=== PATIENT | male | born 1965 | race Caucasian/White ===

== ENCOUNTER 2018-02-18 11:55 | Emergency (ER) | payer BC ==
[2018-02-18] MEDS ORDERED: ONDANSETRON HCL 4 MG/2 ML VIAL ONE (12:16)
[2018-02-18 12:28] LABS: BASOPHILS % (AUTO) 0.5 % (0.0-5.0); EOSINOPHILS % (AUTO) 5.1 % (0.0-8.0); HEMATOCRIT 46.8 % (42-54); LYMPHOCYTES % (AUTO) 15.3 % (21.0-51.0); MEAN CORPUSCULAR HEMOGLOBIN 28.1 pg (27.0-33.0); MEAN CORPUSCULAR HGB CONC 34.5 g/dL (32.0-36.0); MEAN CORPUSCULAR VOLUME 81.5 fL (79-99); NEUTROPHILS % (AUTO) 73.1 % (40.0-77.0); PLATELET COUNT (AUTO) 242 K/uL (130-400); RED BLOOD CELL COUNT(AUTO) 5.74 MIL/uL (4.50-6.20); RED CELL DISTRIBUTION WIDTH 13.4 % (11.0-15.5); WHITE BLOOD COUNT (AUTO) 8.6 K/uL (4.8-10.8)
[2018-02-18 12:42] LABS: CREATININE 1.3 mg/dL (0.5-1.5); POTASSIUM 3.7 mmol/L (3.5-5.1)
[2018-02-18 12:47] LABS: ALBUMIN 4.1 g/dL (3.5-5.0); BILIRUBIN,TOTAL 0.5 mg/dL (0.2-1.0); TOTAL PROTEIN, SERUM 7.5 g/dL (6.0-8.3)
[2018-02-18] MEDS ORDERED: SODIUM CHLORIDE 0.9% 1000ML 1,000 ML IV ONE (13:27)
[2018-02-18] MEDS ORDERED: KETOROLAC TROMETHAMINE 30MG/ML ONE (13:27)
[2018-02-18 13:30] LABS: APPEARANCE,URINE Turbid (CLEAR); BILIRUBIN,URINE Negative (NEGATIVE); COLOR,URINE Dark Yellow (YELLOW); GLUCOSE, URINE (UA) Negative (NEGATIVE); KETONES,URINE 15 mg/dL (NEGATIVE); LEUKOCYTE ESTERASE ,URINE Trace (NEGATIVE); NITRATE,URINE Negative (NEGATIVE); OCCULT BLOOD,URINE Large (NEGATIVE); PROTEIN,URINE POS 1+ (NEGATIVE)
[2018-02-18] MEDS ORDERED: HYDROMORPHONE 1 MG/1 ML AMP ONE (13:36)
[2018-02-18 13:48] LABS: RBC,URINE 51-100 /HPF (0-1)
[2018-02-18 13:49] LABS: AMORPHOUS SEDIMENT,UR Many /LPF (None Seen); BACTERIA,URINE Moderate /HPF (None Seen); SQUAMOUS EPITHELIAL CELL,UR 0-2 /HPF (0-2)
== END 2018-02-18 14:45 | disposition home or self-care (01) ==
LOC: EDH 11:55
DX: N20.0 Calculus of kidney (principal); N21.1 Calculus in urethra
CPT/HCPCS: 36415; 74176; 80053; 81001; 82150; 83690; 85025; 93005; 96361; 96374; 96375; 99285; J1170; J1885; J2405; J7030

== ENCOUNTER → 2018-03-26 | Outpatient (CLI) | payer BC | END | disposition home or self-care (01) | LOC: RAH 14:32 | PROVIDERS: ATTEND Urology | DX: N13.30 Unspecified hydronephrosis (principal) | CPT/HCPCS: 76770 ==

== ENCOUNTER 2018-04-26 07:35 | Day surgery (SDC) | payer BC ==
[2018-04-24 16:30] VITALS: BP 123/78
[~2018-04-26] VITALS: Ht 185.4 cm; Wt 90.9 kg
[2018-04-26] VITALS (12 sets, daily range): BP systolic 107–135; BP diastolic 65–96
[~2018-04-26 07:35] MED LIST: TAMS-1 PO
[2018-04-26] MEDS ORDERED: LACTATED RINGERS 1000ML 1,000 ML IV ONE (08:08)
[2018-04-26] MEDS: CEFTRIAXONE SODIUM 1 GM IVP PRN ×2 (08:23→10:10)
[2018-04-26] MEDS ORDERED: IOHEXOL-350 50ML VIAL IV ONE (09:40)
[2018-04-26] MEDS ORDERED: LIDOCAINE PF 2% 5ML ABBOJECT ONE (09:48)
[2018-04-26] MEDS ORDERED: FENTANYL CITRATE PF 50 MCG/1 ML 2ML VIAL ONE (09:48)
[2018-04-26] MEDS ORDERED: PROPOFOL 10 MG/ML 20ML VIAL IV ONE (09:48)
[2018-04-26] MEDS ORDERED: MEPERIDINE-PF 25 MG/ML SYG ONE (11:18)
[2018-04-26] MEDS ORDERED: OPIUM/BELLADONNA ALKALOIDS 1 EACH SUPP.RECT RC ONE (11:27)
[2018-04-26] MEDS ORDERED: PHENAZOPYRIDINE HCL 200 MG TABLET ONE (12:31)
== END 2018-04-26 13:16 | disposition home or self-care (01) ==
LOC: DAH 07:35
PROVIDERS: ATTEND Urology
DX: N13.2 Hydronephrosis with renal and ureteral calculous obstruction (principal); R31.0 Gross hematuria; Z79.899 Other long term (current) drug therapy; Z98.890 Other specified postprocedural states
CPT/HCPCS: 52356; 74420; A4218; A4354; A4358; A4510; A4600; A4649; C1726; C1758 ×3; C1769; C2617; J0696; J2001; J2175; J2704; J3010; J7030; J7120 ×2; Q9967

== ENCOUNTER 2019-07-16 21:48 | Emergency (ER) | payer BC ==
[2019-07-16] MEDS ORDERED: SODIUM CHLORIDE 0.9% 1000ML 1,000 ML IV ONE ×2 (22:31→23:05)
[2019-07-16 22:47] LABS: BASOPHILS % (AUTO) 0.5 % (0.0-5.0); EOSINOPHILS % (AUTO) 0.2 % (0.0-8.0); HEMATOCRIT 47.1 % (42-54); LYMPHOCYTES % (AUTO) 14.4 % (21.0-51.0); MEAN CORPUSCULAR HEMOGLOBIN 27.1 pg (27.0-33.0); MEAN CORPUSCULAR VOLUME 79.8 fL (79-99); MONOCYTES % (AUTO) 10.8 % (3.0-13.0); NEUTROPHILS % (AUTO) 72.7 % (40.0-77.0); PLATELET COUNT (AUTO) 190 K/uL (130-400); RED CELL DISTRIBUTION WIDTH 12.6 % (11.0-15.5); WHITE BLOOD COUNT (AUTO) 4.2 K/uL (4.8-10.8)
[2019-07-16 22:49] LABS: BILIRUBIN,URINE Small (NEGATIVE); COLOR,URINE Dark Yellow (YELLOW); GLUCOSE, URINE (UA) Negative (NEGATIVE); KETONES,URINE 15 mg/dL (NEGATIVE); LEUKOCYTE ESTERASE ,URINE Negative (NEGATIVE); NITRATE,URINE Negative (NEGATIVE); OCCULT BLOOD,URINE Negative (NEGATIVE); PH,URINE 5.5 (5.0-8.0); PROTEIN,URINE POS 1+ mg/dL (NEGATIVE)
[2019-07-16 22:52] LABS: APPEARANCE,URINE CLEAR (CLEAR)
[2019-07-16] MEDS ORDERED: METOCLOPRAMIDE 10 MG/2 ML VIAL ONE (22:57)
[2019-07-16] MEDS ORDERED: ONDANSETRON HCL 4 MG/2 ML VIAL ONE (22:57)
[2019-07-16] MEDS ORDERED: HYOSCYAMINE SULFATE 0.125 MG TAB.SUBL SL ONE (22:57)
[2019-07-16] MEDS ORDERED: LEVOFLOXACIN 500 MG TABLET ONE (22:57)
[2019-07-16 22:58] LABS: CREATININE 1.2 mg/dL (0.5-1.5); POTASSIUM 4.1 mmol/L (3.5-5.1)
[2019-07-16] MEDS ORDERED: ONDANSETRON ODT 4 MG TAB ONE (22:58)
[2019-07-16 23:04] LABS: ALBUMIN 3.6 g/dL (3.5-5.0); BILIRUBIN,TOTAL 0.5 mg/dL (0.2-1.0); TOTAL PROTEIN, SERUM 6.9 g/dL (6.0-8.3)
[2019-07-16 23:11] LABS: BACTERIA,URINE Few /HPF (None Seen); CALCIUM OXALATE CRYSTALS,UR Moderate /LPF (None Seen); MUCUS,URINE Moderate LPF (None Seen); RBC,URINE 0-1 /HPF (0-1); SQUAMOUS EPITHELIAL CELL,UR 0-2 /HPF (0-2)
== END 2019-07-17 00:07 | disposition home or self-care (01) ==
LOC: EDH 21:48
DX: E86.9 Volume depletion, unspecified (principal); R19.7 Diarrhea, unspecified
CPT/HCPCS: 36415; 80053; 81001; 82550; 85025; 96374; 99284; J2765; J7030 ×2; J2405

== ENCOUNTER 2025-02-06 11:09 | Emergency (ER) | payer BC ==
[~2025-02-06] VITALS: Ht 180.3 cm; Wt 86.2 kg
[~2025-02-06 11:09] MED LIST changes: -TAMS-1 PO; +TAMS-55 PO
--- NOTE | 2025-02-06 11:21 | EKG ---
[facility] Test Date: 2025-02-06 Test Time: 11:16:31 Pat Name: ALFREDO CARBAJAL Department: [facility] Room: Gender: M Order Desk Caller: [id number] : 1965 Requested By: GAUDENCIO LOMBARDO Order Number: [id number] Reading MD: Jonnathan Rios Measurements Intervals [place] Rate: 58 P: 21 UT: 142 QRS: -20 QRSD: 116 T: 34 QT: 427 QTc: 419 Interpretive Statements Sinus rhythm Incomplete right bundle branch block Probable lateral infarct, old Compared to ECG 02/18/2018 12:39:36 Myocardial infarct finding now present Sinus bradycardia no longer present Electronically Signed On 02-06-2025 18:30:50 CDT by Jonnathan Rios Please click the below link to view image of tracing.
[2025-02-06 11:33] LABS: IMMATURE GRANULOCYTE ABSOLUTE 0.04 K/uL (0-1); NUCLEATED RED BLOOD CELLS 0.0 % (0.0-0.19); PLATELET COUNT (AUTO) 238 K/uL (130-400); RED BLOOD CELL COUNT(AUTO) 6.03 MIL/uL (4.50-6.20); RED CELL DISTRIBUTION WIDTH 12.9 % (11.0-15.5); WHITE BLOOD COUNT (AUTO) 5.8 K/uL (4.8-10.8)
[2025-02-06 11:35] LABS: APPEARANCE,URINE CLEAR (CLEAR); GLUCOSE, URINE (UA) NEGATIVE (NEGATIVE); LEUKOCYTE ESTERASE ,URINE NEGATIVE Leu/uL (NEGATIVE); NITRATE,URINE NEGATIVE (NEGATIVE); OCCULT BLOOD,URINE NEGATIVE (NEGATIVE)
[2025-02-06 11:45] LABS: ADD UA MICROSCOPIC NO
[2025-02-06 12:00] LABS: CREATININE 1.0 mg/dL (0.5-1.3); GLOMERULAR FILTR. RATE CALC 86.0 mL/min (>90); GLUCOSE,RANDOM 101.0 mg/dL (70-105); SODIUM SERUM 144.0 mmol/L (136-145); UREA NITROGEN, BLOOD 11.0 mg/dL (7-18)
[2025-02-06 12:04] LABS: ASPARTATE AMINOTRANSFERASE 18.0 U/L (10-37); CREATINE KINASE, TOTAL 66.0 U/L (21-232); TOTAL PROTEIN, SERUM 7.3 g/dL (6.0-8.3)
--- NOTE | 2025-02-06 13:59 | HMCIMG ---
CT ABD/PEL WO CON RENAL/APPY INDICATION: mid abdominal pain. COMPARISON: None. TECHNIQUE: Sequential axial images through the abdomen and pelvis were performed without contrast. Sagittal and coronal reconstructions were obtained. CT was performed with one or more of the following dose reduction techniques: Automated exposure control, adjustment of the mA and/or kV according to the patient's size, or use of the iterative reconstruction technique. FINDINGS: Lung bases: Clear. Evaluation of solid organs is limited without IV contrast. Liver: Normal size, shape and density. Gallbladder: Normal. Kidneys: Normal size and shape. 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 Spleen: Normal. Pancreas: Unremarkable. Adrenals: Normal. Stomach and small bowel: Unremarkable. Colon: There are scattered diverticulosis with no evidence of diverticulitis.. Appendix: Normal. Bladder: Unremarkable. Reproductive: The prostate and seminal vesicle appears to be normal.. Aorta: Normal caliber. Skeletal: No acute abnormality. IMPRESSION: No acute abnormality identified.
[2025-02-06] MEDS ORDERED: DICY20TA2 PO (14:52)
[2025-02-06] MEDS ORDERED: ONDA-243 PO (14:52)
--- NOTE | 2025-02-06 14:52 | ERN ---
ED Note History of Present Illness Stated Complaint: ABDOMINAL PAIN Chief Complaint: Abdominal Pain Time Seen by MD: 11:12 Dictation: 59-year-old male presenting to the emergency department with intermittent abdominal pain over the past week seen by his primary care doctor had labs x-ray which were negative sent in for further evaluation. Patient denies chest pain and shortness a breath. Allergies: Coded Allergies: No Known Drug Allergies (Unverified Allergy, Unknown, 04/24/18) Home Meds Reported Medications Tamsulosin HCl (Flomax) 0.4 Mg Cap.er.24h, 0.4 MG PO DAILY, CAPSULE. 04/24/18 Past Medical History Past Medical History: No Pertinent History Surgical History: Other Review of System Dictation Constitutional: Negative for fever,chills, and weight loss Eyes: Negative for injury, pain,redness, and discharge ENT: Negative for injury,pain or swelling Cardiovascular: Negative for chest pain, palpitations, and edema Respiratory: Negative for shortness of breath, cough, and wheezing, Abdomen/GI: Per HPI : Negative for injury, bleeding and discharge MS/Extremity: Negative for injury and deformity Skin: Negative for rash, and discoloration Neuro: Negative for headache, weakness, numbness, tingling, and seizure Psych: Negative for suicide ideation, homicidal ideation, and hallucinations Initial Vital Sign VS Vital Signs Date Time Temp Pulse Resp B/P (MAP) Pulse Ox O2 Delivery O2 Flow Rate FiO2 02/06/25 11:10 97.5 68 20 118/71 98 Room Air 02/06/25 12:27 0 21 Physical Exam Dictation General: awake, alert, NAD Head/Face: Normocephalic, atraumatic Eyes: PERRL, EOMI, vision at baseline ENT: oral cavity clear, TMs clear, no signs of infection Neck: Trachea midline, supple, no nuchal rigidity Cardiovascular: RRR, normal S1/S2, No MRGs, no JVD Respiratory: CTAB, no respiratory distress, No rales or wheezes Abdomen: Soft, non-tender, non-distended, normal bowel sounds, no guarding or rebound. Skin: Warm, dry, normal turgor, no rash MS/Extremity: Pulses equal, no cyanosis, neurovascular intact, FROM Neuro: COAx4, GCS 15, strength 5/5, CN 2-12 intact, normal cerebellar exam, normal gait, Psych: Normal behavior, mood, and affect normal Results (Laboratory/Radiology) Laboratory/Radiology Laboratory Tests Test 02/06/25 11:20 02/06/25 11:27 Urine Color LIGHT-YELLOW (YELLOW) Urine Appearance CLEAR (CLEAR) Urine pH 7.5 (5.0-8.0) Urine Specific [place] 1.010 (1.001-1.031) Urine Protein NEGATIVE mg/dL (NEGATIVE) Urine Glucose (UA) NEGATIVE mg/dL (NEGATIVE) Urine Ketones NEGATIVE mg/dL (NEGATIVE) Urine Occult Blood NEGATIVE (NEGATIVE) Urine Nitrate NEGATIVE (NEGATIVE) Urine Bilirubin NEGATIVE mg/dL (NEGATIVE) Urine Urobilinogen 0.2 mg/dL (0.2-1.0) Urine Leukocyte Esterase NEGATIVE [place]/uL White Blood Count 5.8 K/uL (4.8-10.8) Red Blood Count 6.03 MIL/uL (4.50-6.20) Hemoglobin 16.7 g/dL (14.0-18.0) Hematocrit 48.7 % (42-54) Mean Corpuscular Volume 80.8 fL (79-99) Mean Corpuscular Hemoglobin 27.7 pg (27.0-33.0) Mean Corpuscular Hemoglobin Concent 34.3 g/dL (32.0-36.0) Red Cell Distribution Width 12.9 % (11.0-15.5) Platelet Count 238 K/uL (130-400) Mean Platelet Volume 9.5 fL (7.5-10.5) Immature Granulocyte % (Auto) 0.7 % (0-1) Neutrophils (%) (Auto) 52.4 % (40.0-77.0) Lymphocytes (%) (Auto) 26.6 % (21.0-51.0) Monocytes (%) (Auto) 8.6 % (3.0-13.0) Eosinophils (%) (Auto) 11.0 % (0.0-8.0) H Basophils (%) (Auto) 0.7 % (0.0-5.0) Neutrophils # (Auto) 3.1 K/uL (1.8-7.7) Lymphocytes # (Auto) 1.6 K/uL (1.0-4.8) Monocytes # (Auto) 0.5 K/uL (0.1-1.0) Eosinophils # (Auto) 0.64 K/uL (0.00-0.70) Basophils # (Auto) 0.04 K/uL (0.00-0.20) Absolute Immature Granulocyte (auto 0.04 K/uL (0-1) Nucleated Red Blood Cells 0.0 % (0.0-0.19) Sodium Level 144 mmol/L (136-145) Potassium Level 3.9 mmol/L (3.5-5.1) Chloride Level 104 mmol/L (101-111) Carbon Dioxide Level 31 mmol/L (21-32) Blood Urea Nitrogen 11 mg/dL (7-18) Creatinine 1.0 mg/dL (0.5-1.3) Glomerular Filtration Rate Calc 86 mL/min (>90) Random Glucose 101 mg/dL (70-105) Total Calcium 8.9 mg/dL (8.5-10.1) Total Bilirubin 0.6 mg/dL (0.2-1.0) Direct Bilirubin 0.2 mg/dL (0.0-0.3) Aspartate Amino Transf (AST/SGOT) 18 U/L (10-37) Alanine Aminotransferase (ALT/SGPT) 30 U/L (12-78) Alkaline Phosphatase 92 U/L (50-136) Total Creatine Kinase 66 U/L (21-232) Troponin I High Sensitivity 6 ng/L (4-75) Total Protein 7.3 g/dL (6.0-8.3) Albumin 4.1 g/dL (3.5-5.0) Lipase 35 U/L (16-77) Labs Reviewed?: Yes EKG Comment: Heart rate 58 normal sinus rhythm normal intervals, negative for STEMI ED Course ED Course Orders Procedure Category Date Status Time 12 Lead Ekg Tracing- EKG 02/06/25 Complete Technical 11:13 Basic Metabolic Panel LAB 02/06/25 Complete 11:13 Cbc With Differential LAB 02/06/25 Complete 11:13 Hepatic Function Panel LAB 02/06/25 Complete 11:13 Creatine Kinase, Total LAB 02/06/25 Complete 11:13 Lipase LAB 02/06/25 Complete 11:13 Troponin I High LAB 02/06/25 Complete Sensitivity 11:13 Urinalysis Profile LAB 02/06/25 Complete 11:13 Ct Abd/Pel Wo Con CT 02/06/25 Resulted Renal/Appy 11:40 Vital Signs Date Time Temp Pulse Resp B/P (MAP) Pulse Ox O2 Delivery O2 Flow Rate FiO2 02/06/25 12:27 97.9 61 18 120/78 99 Room Air* 0 21 02/06/25 11:10 97.5 68 20 118/71 98 Room Air Medical Decision Making MDM MDM: Differential diagnosis: Rationale: Tests considered and ordered secondary to shared decision making include: Previous outside records reviewed: Old ER visits. Risk of complication and/or morbidity or mortality of patient management: None Medications-Per medication reconciliation Need for hospitalization: Patient does not meet criteria for hospitalization. Need for emergency major/minor surgery: No There are no social concerns with this patient. Prescription drug management Prescriptions will include symptomatic care Patient's prior external medical records from other ER visits were reviewed by me as indicated. Prior testing and results from previous visits were reviewed. Prior tests were taken into account with medical decision making and resource utilization, independent historian/historians were used to obtain complete medical history. I independently interpreted the test that were performed, results were reviewed by me and considered findings on radiology if ordered. Medical management and examination interpretation discussions were had by me with other qualified healthcare professionals as indicated for the patient's care. 59-year-old male with intermittent abdominal pain stable exam negative workup negative CT scan stable for discharge. DX & DISP Disposition: Discharge Departure Impression: Primary Impression: Acute abdominal pain Condition: Stable Scripts Ondansetron (Ondansetron Odt) 4 Mg Tab.rapdis 4 MG PO BID for vomiting for 5 Days, #10 TAB Prov: GAUDENCIO LOMBARDO MD 02/06/25 Dicyclomine HCl (Bentyl) 20 Mg Tab 1 TAB PO BID for irritable bowel symptoms for 10 Days, #20 TAB 0 Refills Prov: GAUDENCIO LOMBARDO MD 02/06/25 Referrals: PEPPER COFFMAN MD (PCP) GAUDENCIO LOMBARDO MD Feb 06, 2025 14:52
[2025-02-06 15:09] VITALS: BP 116/75; PULSE 60; RESP 20; TEMP 98.1; O2SAT 97
== END 2025-02-06 15:12 | disposition home or self-care (01) ==
LOC: EDH 11:09
DX: R10.9 Unspecified abdominal pain (principal); Z79.899 Other long term (current) drug therapy
CPT/HCPCS: 36415; 74176; 80048; 80076; 81003; 82550; 83690; 84484; 85025; 93005; 99284